=== PATIENT | female | born 1965 | race Caucasian/White ===

== ENCOUNTER 2023-11-24 06:27 | Day surgery (SDC) | payer OTHER, SELFPAY ==
[2023-11-17 09:53] VITALS: BMI 21.9
[2023-11-24] VITALS (14 sets, daily range): BP systolic 107–137; BP diastolic 66–97; BMI 21.9
[2023-11-24] MEDS: NORMOSOL-R 1000 IV (07:48)
[2023-11-24] MEDS: CELEBREX 200 MG PO (07:49)
[2023-11-24] MEDS: TYLENOL 1000 MG PO (07:49)
[2023-11-24] MEDS: DEMEROL 12.5 MG IV ×2 (10:39→10:47)
[2023-11-24] MEDS: DILAUDID 0.25 MG IV (10:59)
[2023-11-24] MEDS: DILAUDID 0.5 MG IV (11:12)
[2023-11-24] MEDS: ROXICODONE 5 MG PO (13:30)
== END 2023-11-24 13:35 | disposition home or self-care (01) ==
LOC: SDS 06:27
PROVIDERS: ATTENDING PHYSICIAN Orthopaedic Surgery Hand Surgery; FAMILY PHYSICIAN Internal Medicine
DX: M75.42 Impingement syndrome of left shoulder (principal); M75.32 Calcific tendinitis of left shoulder; M19.012 Primary osteoarthritis, left shoulder; M25.712 Osteophyte, left shoulder
CPT/HCPCS: 29827; 29826; 36415; 93005; C1713; C1763

== ENCOUNTER 2025-06-15 21:47 | Emergency (ER) | payer OTHER, SELFPAY ==
[2025-06-15] VITALS (7 sets, daily range): BP systolic 141–162; BP diastolic 74–104; BMI 22.0
[2025-06-15 22:12] LABS: Hematocrit 41.3 % (37.0-47.0); Hemoglobin 13.5 g/dL (12.0-16.0); Mean Corp Hgb Conc. 32.7 g/dL (33.0-37.0); Mean Corpuscular Volume 93.2 fL (81.0-99.0); Nucleated Red Blood Cells % 0 %; Platelet Count 204 10^3/uL (130-400); Red Cell Dist. Width 12.3 % (11.5-14.5)
--- NOTE | 2025-06-15 22:38 | ED.GENMED ---
History of Present Illness
General
Chief Complaint: Headache
Source: patient and spouse
Time Seen by Provider: 06/15/25 22:16
History of Present Illness
History of Present Illness:
Note:
CHIEF COMPLAINT(S)
Sudden onset severe headache and nausea.
HISTORY OF PRESENT ILLNESS
The patient is a 59-year-old female who presented with a sudden onset severe headache while on a Zoom call earlier today. She described the headache as originating at the back of her head and radiating down her neck. The patient noted that she felt
unusually hot, and her hearing started to decline at the onset of the headache. She also experienced nausea and vomiting and was unable to move due to the pain, requiring assistance to lie down. The patient denied any fever but did mention that she
has been experiencing random headaches at night over the past week. Historically, she has never experienced headaches. There is a family history of brain aneurysms, and her grandmother had an aneurism. No past medical history of hypertension,
diabetes, hypercholesterolemia, or heart problems was reported.
PAST MEDICAL AND SURGICAL HISTORY
The patient denies any past medical history of hypertension, diabetes, hypercholesterolemia, or heart disease.
FAMILY HISTORY
The patients grandmother had a brain aneurysm.
REVIEW OF SYSTEMS
- Neurological: Sudden onset of severe headache, reports of random headaches at night over the past week.
- Ears: Hearing decline noted at the onset of the headache.
- Gastrointestinal: Nausea and vomiting.
- Musculoskeletal: Difficulty moving due to pain.
PHYSICAL EXAM
General: Moderate pain distress, patient appeared unwell.
Skin: Warm, dry.
Head: Normocephalic, atraumatic.
Neck: Supple, trachea midline.
Eye: Equal, round, reactive to light.
Ears, Nose, Mouth, and Throat: Oral mucosa moist.
Cardiovascular: Normal peripheral perfusion, no edema.
Respiratory: No respiratory distress.
Gastrointestinal: Abdomen nondistended.
Back: Normal range of motion, normal alignment.
Musculoskeletal: Normal range of motion, normal strength.
Neurological: No focal neurological deficits observed; pupils equal, round, reactive to light.
Psychiatric: Cooperative, appropriate mood and affect.
PLAN
The plan is to obtain a computed tomography (CT) scan of the head to rule out intracranial bleeding or aneurysm rupture. Additionally, the patient will receive medication for nausea relief.
DIFFERENTIAL DIAGNOSIS
The Differential Diagnosis includes, in no particular order and is not limited to:
1. Subarachnoid hemorrhage
2. Migraine
3. Meningitis
4. Brain aneurysm
5. Tension headache
6. Temporal arteritis
7. Cluster headache
8. Cerebral venous thrombosis
9. Intra-cerebral hemorrhage
10. Neoplasm
CARE-UPDATE
06/15/25 - :36
Noted sudden onset of pain with concern for subarachnoid hemorrhage. CT confirmed presence of subarachnoid hemorrhage. CTA currently being conducted. informed of situation. Contact established with neurosurgery at [facility]
for further management.
CARE-UPDATE
06/15/25 - :[address] High confirms the plan to maintain blood pressure under 160 mmHg and target essentially normal levels. Medication initiation on hold. Agreement reached on administration of IV Keppra. Awaiting confirmation from flight team
for patient transport arrangements.
CARE-UPDATE
06/15/25 - :51
The patients headache and nausea persist despite previous management. Administered morphine for headache relief and Zofran for nausea. Current blood pressure reading is 169/77. Initiated Cardene infusion at 2.5 mg/hr to manage hypertension. Keppra
is being administered as part of the treatment plan.
Disposition:
SUMMARY OF ENCOUNTER
The patient is a 59-year-old female who presented to the emergency department with a sudden onset of head and neck pain experienced during a Zoom call, raising concern for subarachnoid hemorrhage. A CT scan confirmed the presence of a subarachnoid
hemorrhage. The patient was re-evaluated and continued to report persistent headache. Management included addressing nausea and maintaining blood pressure. The patients blood pressure was measured at 139/79, which was deemed appropriate, and
infusion with Cardene (nicardipine) was continued. Despite being non-focal, she was slightly slow to respond but maintained a normal airway and gag reflex. The patients was present and informed about the diagnosis and concerns.
DISPOSITION
Transfer. The flight team was at the bedside, preparing to transport the patient for further specialized care.
ASSESSMENT
Subarachnoid hemorrhage confirmed by CT scan, likely secondary to an aneurysmal bleed given the patients family history.
EMERGENCY TREATMENTS ADMINISTERED
Morphine for headache relief, Zofran (ondansetron) for nausea management, Cardene (nicardipine) for blood pressure control, and intravenous administration of levetiracetam to prevent seizures.
MANAGEMENT OF THE PATIENTS CARE WAS DISCUSSED WITH
Consultation and communication occurred with a neurosurgery team at the [facility] for further management.
REASSESSMENT
Patient continued to have persistent headaches and was slightly slow to respond, yet maintained normal reflexes and vital signs were stable with appropriate blood pressure control.
PLAN
The plan involves securing the patients safe transfer to a tertiary care center for further neurosurgical evaluation and management.
MEDICAL DECISION MAKING
-Complexity of Data Reviewed: Family history of brain aneurysm impacting care with listed Differential Diagnoses:
1. Subarachnoid hemorrhage
2. Migraine
3. Meningitis
4. Brain aneurysm
5. Tension headache
6. Temporal arteritis
7. Cluster headache
8. Cerebral venous thrombosis
9. Intra-cerebral hemorrhage
10. Neoplasm
-Data:
Category 1
My independent interpretation of the CT scan confirmed subarachnoid hemorrhage. CBC normal. BMP normal
Category 3
Discussion of management with neurosurgery team at [facility].
-Risk:
Decisions regarding diagnostic testing with risk, such as CT imaging with radiation exposure, were made.
DIAGNOSIS
Subarachnoid hemorrhage, ICD-10 I60.9.
Uncontrolled hypertension
Phy Exam
Physical Exam
Physical Exam:
.
Course
Orders/Labs/Results
Orders:
Orders
06/15/25 21:52
CT Head & Neck Angio W/wo IV Urgent
Comment:
Reason For Exam: Headache
06/15/25 21:53
EKG [Electrocardiogram (*1)] Urgent
Reason for Study: Vertigo / Dizzy
EKG- Treatment ONCE
06/15/25 22:02
Complete Blood Count/With Diff Urgent
06/15/25 22:40
Levetiracetam Injectable [Keppra] 1,000 mg IV NOW STA
06/15/25 22:41
Morphine Sulfate 4 mg IV NOW STA
Ondansetron Injectable [Zofran] 4 mg IV NOW STA
06/15/25 22:45
Nicardipine 40 mg/200 ml [Cardene] 40 mg in 200 ml IV PER PROTOCOL
Initial dose in mg/hr, then titrate:: 5
Titrate to keep:: SBP 140 - 160 mmHg
Titrate by mg/hr:: 2.5 mg/hr
Frequency of titrations (minutes):: 5-15 minutes
Maximum dose in mg/hr:: 15
Begin to taper infusion when:: Remained at goal for 2hrs
Taper by mg/hr:: 2.5 mg/hr
Frequency of taper (minutes) if patient maintains goal:: every 15-30 minutes
Taper to off?: Yes
If infusion off & no longer maintaining goal:: Contact Provider
06/15/25 23:03
Comprehensive Metabolic Panel Urgent
06/15/25 23:31
HYDROmorphone [Dilaudid] 0.5 mg .ROUTE .STK-MED ONE
06/15/25 23:33
HYDROmorphone [Dilaudid] 0.5 mg IV NOW STA
06/15/25 23:37
Ondansetron Injectable [Zofran] 4 mg .ROUTE .STK-MED ONE
Abnormal Lab Results
06/15/25 06/15/25
22:02 23:03
MCHC 32.7 L g/dL
(33.0-37.0)
MPV 11.1 H fL
(7.4-10.4)
Abs Immat Gran (auto) 0.1 H 10^3/uL
(0-0.05)
Immature Gran % 1.7 H %
(0-0.5)
Monocytes % 9.5 H %
(1.7-9.3)
BUN 23 H mg/dl
(7-17)
Glucose 119 H mg/dl
(70-99)
06/15/25 22:02
06/15/25 23:03
Vital Signs
Initial and Last Documented VS:
Initial Vital Signs
Temp Pulse Resp BP Pulse Ox
97.6 F 73 18 162/104 97
06/15/25 21:54 06/15/25 21:54 06/15/25 21:54 06/15/25 21:54 06/15/25 21:54
Last Documented Vital Signs
Temp Pulse Resp BP Pulse Ox
97.6 F 68 18 153/85 98
06/15/25 21:54 06/15/25 23:15 06/15/25 22:00 06/15/25 23:10 06/15/25 23:15
*Pulse Oximetry
SaO2: 97
Oxygen Mode of Delivery: Room air
Patient hypoxic: no
*Critical Care Note
Total Time (30-74mins, 75-104mins- exclusive of procedures): 55 minutes
ED Attending Note
-
Portions of this chart may have been created with voice recognition software.� Occasional wrong word or��sound alike� substitutions may have occurred due to the inherent limitations of voice recognition software.
Discharge Plan
Departure
Patient Disposition: Acute Care Hospital
Date of Disposition: 06/15/25
Time of Disposition: 22:39
Discharge Problem:
Subarachnoid hemorrhage
Prescriptions:
No Action
No Current Medications
0
Hospital Transfer
Other hospital: [facility]
I certify that the patient requires transfer: Yes
Discussed case with accepting physician: Lennox
Reason for transfer: higher level of care and medical necessity
Interventions
Interventions:
*Risk Screen - Suicide Last Done: 06/15/25 21:54
*General Assessment Last Done: 06/15/25 21:54
*Neglect/Abuse Screening Last Done: 06/15/25 21:54
*ED- Fall Risk Assessment Last Done: 06/15/25 21:54
ED- Neurological Assessment Last Done: 06/15/25 22:19
Discharge Date and Time
Print Language: ROMANSH
[2025-06-15] MEDS: ZOFRAN 4 MG IV (22:46)
[2025-06-15] MEDS: KEPPRA 1000 MG IV (22:46)
[2025-06-15] MEDS: MORPHINE SULFATE 4 MG IV (22:46)
[2025-06-15] MEDS: CARDENE 200 IV (22:47)
[2025-06-15 23:29] LABS: ALT (SGPT) 22 U/L (0-35); AST (SGOT) 28 U/L (14-36); Albumin 4.3 g/dl (3.5-5.0); Alkaline Phosphatase 82 U/L (38-126); Blood Urea Nitrogen 23 mg/dl (7-17); Calcium 9.1 mg/dl (8.4-10.2); Carbon Dioxide 25 mmol/L (22-30); Chloride 103 mmol/L (98-107); Estimated Creatinine Clearance 76 ml/min; Glucose 119 mg/dl (70-99); Potassium 3.9 mmol/L (3.5-5.1); Sodium 137 mmol/L (135-145); Total Protein 6.5 g/dl (6.3-8.2); eGFR > 60.00
[2025-06-15] MEDS: DILAUDID 0.5 MG IV (23:33)
== END 2025-06-15 22:39 | disposition short-term general hospital (02) ==
LOC: EMR 21:47
PROVIDERS: Emergency Medicine; EMERGENCY PHYSICIAN Emergency Medicine; FAMILY PHYSICIAN Internal Medicine
DX: I60.9 Nontraumatic subarachnoid hemorrhage, unspecified (principal)
CPT/HCPCS: 99291; 96365; 96366; 96375 ×5; 70496; 70498; 80053; 85025; 93005; Q9967